=== PATIENT | female | born 2000 | race Caucasian/White ===

== ENCOUNTER 2021-06-16 12:30 | Outpatient (REF) | payer OTHER, SELFPAY ==
[2021-06-16 13:10] LABS: COVID-19 Test Negative (Negative); IDNOW Serial# 08D9AD1C
== END 2021-06-16 12:31 | disposition home or self-care (01) ==
LOC: HO.LAB 12:30
PROVIDERS: Visit Provider Internal Medicine
DX: Z20.822 Contact with and (suspected) exposure to COVID-19 (principal)
CPT/HCPCS: 87635

== ENCOUNTER 2022-02-16 11:59 | Emergency (ER) | payer OTHER, SELFPAY ==
--- NOTE | ~2022-02-16 | CT_ITS ---
EXAMINATION: CT ABDOMEN AND PELVIS WITHOUT CONTRAST CLINICAL INFORMATION: Right flank pain. COMPARISON: None. TECHNIQUE: Multidetector volumetric imaging was performed from the superior aspect of the liver through the pubic symphysis. Sagittal and coronal reformatted images were obtained on the technologist's workstation. This CT examination was performed using dose optimization techniques as appropriate, variously including the following: *Automated exposure control *Adjustment of mA and/or kV according to patient size (this includes techniques or standardized protocols for targeted exams where dose is matched to indication/reason for exam; i.e. extremities or head) *Use of iterative reconstruction technique DLP: 447 mGy-cm FINDINGS: The lack of intravenous contrast limits evaluation of the solid visceral organs including the liver, spleen, pancreas, and kidneys. LUNG BASES: The visualized lung bases are unremarkable. LIVER, GALLBLADDER, AND BILIARY TREE: The liver is normal in size, shape, and attenuation. No focal hepatic lesion or biliary ductal dilatation is present. The gallbladder is unremarkable with no evidence of radiopaque gallstones, gallbladder wall thickening, or obvious pericholecystic inflammatory changes. PANCREAS: Unremarkable. SPLEEN: Unremarkable. ADRENAL GLANDS: Unremarkable. KIDNEYS AND URETERS: The kidneys are normal in size, shape, and attenuation. No hydronephrosis, hydroureter, or calculi seen. No perinephric stranding. BLADDER: Unremarkable. GASTROINTESTINAL TRACT: No evidence to suggest bowel obstruction, diverticulitis or colitis. The appendix is within normal limits (5:51). ABDOMINAL WALL: Lower abdominal wall surgical changes with multiple surgical tacks, fatty reticulation and mild fat stranding. No significant hernia. LYMPH NODES: Enlarged right lower quadrant mesenteric lymph nodes, for instance measuring 2.9 cm in short axis on image 52, series 3. VASCULAR: Limited noncontrast examination. Normal caliber of the abdominal aorta. PELVIC VISCERA: There is a large approximately 4.7 cm low density cystic appearing lesion in the right adnexa. There is trace amount of free fluid in the pelvis, likely physiologic. OSSEOUS STRUCTURES: No acute or aggressive appearing osseous abnormalities. CT/CT abdomen pelvis wo IV con IMPRESSION: There is a 4.7 cm cystic appearing lesion in the right adnexa, which is almost certainly benign and likely correlates with a dominant cyst. However, given size, a yearly follow-up ultrasound is recommended. If symptoms persist, a shorter term follow-up pelvic ultrasound could be obtained. There are lower abdominal surgical changes with mild fat stranding, correlate with physical examination for signs of infection. Nonspecific prominent right lower quadrant mesenteric lymph nodes, of uncertain significance, which could be seen in a variety of settings including reactive changes in the setting of gastroenteritis or mesenteric adenitis.
[2022-02-16 12:02] VITALS: BP 148/74; PULSE 77; RESP 16; TEMP 36.4; O2SAT 100; BMI 24.1
[2022-02-16 12:15] LABS: Appearance Urine Clear; Color Urine Yellow; Glucose Urine UA Negative (Negative); Leukocyte Esterase Urine Negative (Negative); Nitrite Urine Negative (Negative); Urine Blood Negative (Negative); Urine Ketones Negative (Negative); Urine Protein Negative (Neg-Trace)
[2022-02-16 12:17] LABS: UPreg QC Valid YES; Urine Pregnancy NEGATIVE (NEGATIVE)
--- NOTE | 2022-02-16 13:29 | ED.FEMALEGU ---
HPI - Female Genitourinary General Chief complaint: Urogenital-Female Stated complaint: Kidney infection Time Seen by Provider: 02/16/22 13:18 Source: patient Mode of arrival: ambulatory Limitations: no limitations History of Present Illness MD elicited complaint: dysuria and flank pain Pertinent past history: recurrent UTIs Onset (ago): day(s) (3) Location of symptoms: flank Severity: moderate Quality of pain: aching Consistency: constant Urinary symptoms: Dysuria, Urgency and Frequency Exacerbating factors: none Relieving factors: none Associated symptoms: denies other symptoms Related Data Allergies Allergy/AdvReac Type Severity Reaction Status Date / Time No Known Allergies Allergy Verified 02/16/22 12:01 Review of Systems Review of Systems: Constitutional : No Weight loss, No Fever, No Chills ENT/Mouth : No sore throat, No Rhinorrhea Eyes: No Swelling, No Redness Cardiovascular : No Chest Pain, No SOB, NoEdema Respiratory : No Cough, No Sputum, No Wheezing Gastrointestinal : no Nausea, no Positive Vomiting, no Diarrhea, positive abdominal Pain, No Hematochezia, No Melena Genitourinary :pos Dysuria, pos Urinary Frequency, No Hematuria, No Urgency Musculoskeletal : No joint pain, No Myalgias, No Joint Swelling Skin : No Skin Lesions, No rash Neuro : No Weakness, No Numbness, No Dizziness, No Headache Psych : No Anxiety/Panic, No Depression Heme/Lymph: No Bruising, No Lymphadenopathy Endocrine : No Polyuria, No Polydipsia All other systems reviewed and are negative. [facility] Past Medical History Attestation statement: The following information was validated with the patient. Medical History (Updated 02/16/22 @ 16:13 by Rylie Rivas DO) Recurrent UTI Surgical History (Updated 02/16/22 @ 13:33 by Rylie Rivas DO) History of abdominoplasty Social History Social History (Updated 02/16/22 @ 13:33 by Rylie Rivas DO) Patient Tobacco Use Status: Never used Tobacco Advance Directives: No Advance Directives Information Provided: No Physical Exam Vital Signs: Vital Signs: Last Vital Signs Temp 97.5 F 02/16/22 12:02 Pulse 77 02/16/22 12:02 Resp 16 02/16/22 12:02 BP 148/74 H 02/16/22 12:02 Pulse Ox 100 02/16/22 12:02 O2 Del Method 02/16/22 12:02 BMI result Body Mass Index 24.1 Appearance: Alert. Oriented X3. No acute distress. Eyes: Pupils equal, round and reactive to light. ENT: Pharynx normal. Neck: Normal inspection. Neck supple. CVS: Normal heart rate and rhythm. Pulses normal. Respiratory: No respiratory distress. Breath sounds normal. Abdomen: Soft and mild RUQ pain, mild R flank pain. Skin: Skin warm and dry. Normal skin color. Normal skin turgor. Extremities: No lower extremity edema. No calf ttp Neuro: Oriented X 3. No motor deficit. No sensory deficit. Course Course Course Narrative: not on OCPs PERC negative ovarian cyst and mesenteric adenitis stable for DC MDM - Female Genitourinary MDM Narrative Medical decision making narrative: 21 yo female over the past year several recurrent UTIs - has been on multiple different antibiotics, has not seen a urologist yet. No imaging of kidneys done yet. At this time given RUQ and R flank pain will obtain basic labs, UA, CT scan for renal colic and evaluation of liver/GB. Discussed given negative UA will need to see a urologist to evaluate for interstitial cystitis. Lab Data Result diagrams: 02/16/22 14:28 02/16/22 14:28 Labs: Lab Results 02/16/22 02/16/22 02/16/22 Range/Units 12:08 12:08 14:28 WBC 7.8 (4.8-10.8) X10*3/uL RBC 4.23 (4.20-5.50) X10*6/uL Hgb 12.9 (12.0-16.0) g/dl Hct 38.0 (37.0-47.0) % MCV 89.8 (80.0-98.0) fL MCH 30.5 (27.0-33.0) pg MCHC 33.9 (31.0-35.0) g/dl RDW 12.8 (11.0-16.0) % Plt Count 244 (160-400) X10*3/uL MPV 9.6 (9.4-12.3) fL Immature Gran % (Auto) 0.3 (0.0-0.4) % Neut % (Auto) 63.1 (45-73) % Lymph % (Auto) 24.9 (20-40) % [place] % (Auto) 8.6 (2-11) % Eos % (Auto) 2.6 (0-4) % Baso % (Auto) 0.5 (0-2) % Lymph # (Auto) 2.0 (1.2-4.9) X10*3/uL [place] # (Auto) 0.7 (0.1-1.2) X10*3/uL Eos # (Auto) 0.2 (0.0-0.4) X10*3/uL Baso # (Auto) 0.0 (0.0-0.2) X10*3/uL Abs Immat Gran (auto) 0.02 (0.00-0.03) X10*3/uL Absolute Neuts (auto) 4.9 (2.0-8.3) x10*3/uL Absolute Nucleated RBC 0.000 (0.0-0.012) X10*3/uL Nucleated RBC % (auto) 0.0 (0.0-0.2) /100WBC Sodium (135-145) mmol/L Potassium (3.3-5.1) mmol/L Chloride (96-108) mmol/L Carbon Dioxide (22-29) mmol/L Anion Gap (12-20) BUN (9-16) mg/dL Creatinine (0.5-1.4) mg/dL Estim Creat Clear Calc Estimated GFR Random Glucose (60-115) mg/dL Calcium (8.4-10.2) mg/dL Magnesium (1.6-2.6) mg/dL Total Bilirubin (0.0-1.0) mg/dL Direct Bilirubin (0.0-0.5) mg/dL AST (5-31) U/L ALT (0-31) U/L Alkaline Phosphatase (39-117) U/L Total Protein (6.5-8.0) g/dL Albumin (3.5-5.0) g/dL Lipase (8-78) U/L Urine Color Yellow Urine Appearance Clear Urine pH 6.0 (5.0-9.0) Ur Specific [place] 1.020 (1.005-1.025) Urine Protein Negative (Neg-Trace) mg/dL Urine Glucose (UA) Negative (Negative) mg/dL Urine Ketones Negative (Negative) mg/dL Urine Blood Negative (Negative) Urine Nitrite Negative (Negative) Ur Leukocyte Esterase Negative (Negative) Urine Test NEGATIVE (NEGATIVE) 02/16/22 Range/Units 14:28 WBC (4.8-10.8) X10*3/uL RBC (4.20-5.50) X10*6/uL Hgb (12.0-16.0) g/dl Hct (37.0-47.0) % MCV (80.0-98.0) fL MCH (27.0-33.0) pg MCHC (31.0-35.0) g/dl RDW (11.0-16.0) % Plt Count (160-400) X10*3/uL MPV (9.4-12.3) fL Immature Gran % (Auto) (0.0-0.4) % Neut % (Auto) (45-73) % Lymph % (Auto) (20-40) % [place] % (Auto) (2-11) % Eos % (Auto) (0-4) % Baso % (Auto) (0-2) % Lymph # (Auto) (1.2-4.9) X10*3/uL [place] # (Auto) (0.1-1.2) X10*3/uL Eos # (Auto) (0.0-0.4) X10*3/uL Baso # (Auto) (0.0-0.2) X10*3/uL Abs Immat Gran (auto) (0.00-0.03) X10*3/uL Absolute Neuts (auto) (2.0-8.3) x10*3/uL Absolute Nucleated RBC (0.0-0.012) X10*3/uL Nucleated RBC % (auto) (0.0-0.2) /100WBC Sodium 141 (135-145) mmol/L Potassium 3.6 (3.3-5.1) mmol/L Chloride 105 (96-108) mmol/L Carbon Dioxide 26 (22-29) mmol/L Anion Gap 14 (12-20) BUN 13 (9-16) mg/dL Creatinine 0.77 (0.5-1.4) mg/dL Estim Creat Clear Calc 102.2 Estimated GFR > 60 Random Glucose 75 (60-115) mg/dL Calcium 9.7 (8.4-10.2) mg/dL Magnesium 2.0 (1.6-2.6) mg/dL Total Bilirubin 0.3 (0.0-1.0) mg/dL Direct Bilirubin < 0.2 (0.0-0.5) mg/dL AST 14 (5-31) U/L ALT 9 (0-31) U/L Alkaline Phosphatase 52 (39-117) U/L Total Protein 7.4 (6.5-8.0) g/dL Albumin 4.7 (3.5-5.0) g/dL Lipase 17 (8-78) U/L Urine Color Urine Appearance Urine pH (5.0-9.0) Ur Specific [place] (1.005-1.025) Urine Protein (Neg-Trace) mg/dL Urine Glucose (UA) (Negative) mg/dL Urine Ketones (Negative) mg/dL Urine Blood (Negative) Urine Nitrite (Negative) Ur Leukocyte Esterase (Negative) Urine Test (NEGATIVE) Discharge Plan Discharge Clinical Impression: Acute mesenteric adenitis, Ovarian cyst Patient Disposition: Home, Self-Care Instructions: Adenitis (ED), Ovarian Cyst (ED) Additional Instructions: return to ED for any worsening symptoms or concerns CT scan shows persistent R ovarian cyst - repeat US in 4 weeks tylenol and motrin for pain Referrals: Physician,None [Primary Care Provider] - 1 week Stand Alone Forms: Work/School Release
[2022-02-16] MEDS: 0.9 % Sodium Chloride 1,000 ML 999 ML IV (14:25)
[2022-02-16] MEDS: Ketorolac Tromethamine 30 MG/ML VIAL IVPUSH (14:27)
[2022-02-16 14:31] LABS: MANUAL DIFF FLAG NO
[2022-02-16 14:37] LABS: Basophils Percent Auto 0.5 % (0-2); Eosinophils Absolute Auto 0.2 X10*3/uL (0.0-0.4); Eosinophils Percent Auto 2.6 % (0-4); Hemoglobin 12.9 g/dl (12.0-16.0); Imm Gran Abs Auto 0.02 X10*3/uL (0.00-0.03); Imm Gran Pct Auto 0.3 % (0.0-0.4); Lymphocytes Percent Auto 24.9 % (20-40); Mean Corpuscular HGB Conc 33.9 g/dl (31.0-35.0); Mean Corpuscular Hemoglobin 30.5 pg (27.0-33.0); Mean Corpuscular Volume 89.8 fL (80.0-98.0); Mean Platelet Volume 9.6 fL (9.4-12.3); Monocytes Absolute Auto 0.7 X10*3/uL (0.1-1.2); Monocytes Percent Auto 8.6 % (2-11); Neutrophils Absolute Auto 4.9 x10*3/uL (2.0-8.3); Neutrophils Percent Auto 63.1 % (45-73); Platelet Count 244 X10*3/uL (160-400); Red Blood Count 4.23 X10*6/uL (4.20-5.50); Red Cell Distribution Width 12.8 % (11.0-16.0); White Blood Count 7.8 X10*3/uL (4.8-10.8)
[2022-02-16 15:03] LABS: Alanine Aminotransferase 9 U/L (0-31); Albumin Level 4.7 g/dL (3.5-5.0); Alkaline Phosphatase 52 U/L (39-117); Anion Gap 14 (12-20); Aspartate Amino Transferase 14 U/L (5-31); Blood Urea Nitrogen 13 mg/dL (9-16); Calcium 9.7 mg/dL (8.4-10.2); Carbon Dioxide 26 mmol/L (22-29); Chloride 105 mmol/L (96-108); Creatinine Clr Calc Pharmacy 102.2; Estimated Glomerular Filt Rate > 60; Glucose Random 75 mg/dL (60-115); Lipase 17 U/L (8-78); Potassium 3.6 mmol/L (3.3-5.1); Sodium 141 mmol/L (135-145); Total Protein 7.4 g/dL (6.5-8.0)
[2022-02-16 15:15] LABS: Bilirubin Direct < 0.2 mg/dL (0.0-0.5); Bilirubin Total 0.3 mg/dL (0.0-1.0)
[2022-02-16 16:47] VITALS: BP 116/59; PULSE 67; RESP 18; O2SAT 99
== END 2022-02-16 16:49 | disposition home or self-care (01) ==
PROVIDERS: Emergency Provider Emergency Medicine
DX: I88.0 Nonspecific mesenteric lymphadenitis (principal); N83.209 Unspecified ovarian cyst, unspecified side; R30.0 Dysuria; Z79.899 Other long term (current) drug therapy
CPT/HCPCS: 36415; 74176; 80048; 80076; 81003; 81025; 83690; 83735; 85025; 96374; 99283; 99284; J1885

== ENCOUNTER 2022-03-04 01:51 | Emergency (ER) | payer OTHER, SELFPAY ==
--- NOTE | ~2022-03-04 | US_ITS ---
EXAMINATION: US PELVIS CLINICAL INFORMATION: Right-sided pelvic pain COMPARISON: CT dated 02/16/2022 TECHNIQUE: Ultrasound of the pelvis is performed using both transabdominal and transvaginal transducers along with Doppler. Transvaginal imaging is performed due to inadequate visualization transabdominally. FINDINGS: Uterus: The uterus is anteverted and measures 7.6 x 2.0 x 3.5 cm. The double wall endometrial thickness is 0.1 mm. The uterus is smooth in contour and has normal myometrial echogenicity. No visible fibroid. Adnexa: Both ovaries are visualized. There is normal color flow to the adnexa. There is no ovarian torsion. Trace pelvic free fluid is within physiologic normal limits.. Right ovary measures 4.2 x 1.4 x 2.5 cm. Left ovary measures 2.8 x 1.3 x 1.3 cm. US/US pelvic and transvaginal IMPRESSION: No adnexal cysts or masses. No ovarian torsion. Unremarkable exam.
[2022-03-04 02:04] VITALS: BP 143/77; PULSE 99; RESP 18; TEMP 37.1; O2SAT 99; BMI 24.1
--- NOTE | 2022-03-04 02:52 | ED_ITS ---
HPI - Abdominal Pain General Chief Complaint: Abdominal Pain Stated Complaint: n/v Time Seen by Provider: 03/04/22 02:52 Source: patient Mode of arrival: ambulatory Limitations: no limitations History of Present Illness HPI narrative: Pain history of ovarian cyst was seen here on 02/16 for lower abdominal pain CT scan showed 4.7 cm adnexal cyst. Patient had ovarian cyst about 3 months ago which was micro cyst never had this large size cyst in the past patient been doing okay for except for last 3 days noticed more pain with more nausea no urinary complaints no fever or chills Related Data Previous Rx's Medication Instructions Recorded ibuprofen 600 mg tablet 600 mg PO Q6H PRN Pain (Scale 03/04/22 Score 4-6) #30 tabs ondansetron 4 mg disintegrating 4 mg PO Q6-8H PRN nausea and 03/04/22 tablet vomiting #7 tabs Allergies Allergy/AdvReac Type Severity Reaction Status Date / Time No Known Allergies Allergy Verified 03/04/22 02:03 Review of Systems Review of Systems Yes all other systems are reviewed and are negative [facility] Past Medical History Medical History Recurrent UTI Surgical History History of abdominoplasty Social History Social History Patient Tobacco Use Status: Never used Tobacco Advance Directives: No Advance Directives Information Provided: No Physical Exam ED Vital Signs: Vital Signs - 24 hr 03/04/22 02:04 Temperature 98.7 F Pulse Rate 99 Respiratory Rate 18 Blood Pressure 143/77 H Pulse Oximetry 99 Oxygen Delivery Method Room Air BMI result Body Mass Index 24.1 Appearance: Alert. Oriented X3. No acute distress. ENT: Pharynx normal. Oral Mucosa moist Neck: Normal inspection. Neck supple. CVS: Normal heart rate and rhythm. Pulses normal. Respiratory: No respiratory distress. Equal air entry bilateral, no wheezing/rales/rhonchi Abdomen: Soft , deep tenderness right suprapubic area no guarding or rebound tenderness. Bowel sounds are present, no mass palpable, no CVA tenderness Skin: Skin warm and dry. Normal skin color. Normal skin turgor. Extremities: No lower extremity edema. No calf tenderness Neuro: Oriented X 3. No motor deficit. MDM - Abdominal Pain MDM Narrative Medical decision making narrative: Ultrasound negative for ovarian cyst with small amount of fluid likely ruptured ovarian patient advised to follow-up with field operations technician Medical Records Attestation: I reviewed the patient's medical records. Lab Data Attestation: I reviewed the patient's lab results. Labs: Lab Results 03/04/22 03/04/22 Range/Units 03:22 03:22 Urine Color Yellow Urine Appearance Clear Urine pH 6.0 (5.0-9.0) Ur Specific [place] 1.020 (1.005-1.025) Urine Protein Negative (Neg-Trace) mg/dL Urine Glucose (UA) Negative (Negative) mg/dL Urine Ketones Negative (Negative) mg/dL Urine Blood Negative (Negative) Urine Nitrite Negative (Negative) Ur Leukocyte Esterase Trace H (Negative) Urine RBC 0-2 (0-2) /HPF Urine WBC 0-5 (0-5) /HPF Ur Squamous Epith Cells 3-5 (0-2) /HPF Urine Bacteria None Seen (None Seen) Hyaline Casts 0-2 (0-2) /LPF Urine Test NEGATIVE (NEGATIVE) Discharge Plan Discharge Clinical Impression: Ovarian cyst Patient Disposition: Home, Self-Care Instructions: Ovarian Cyst (ED) Additional Instructions: Take ibuprofen for pain Ovarian cyst has ruptured follow-up with cook soup if any concerns Prescriptions: New ibuprofen 600 mg tablet 600 mg PO Q6H PRN (Reason: Pain (Scale Score 4-6)) Qty: 30 0RF ondansetron 4 mg tablet,disintegrating 4 mg PO Q6-8H PRN (Reason: nausea and vomiting) Qty: 7 0RF Interventions: ED Discharge Assessment Last Done: 03/04/22 04:38 Discharge Date/Time: 03/04/22 04:44
[2022-03-04] MEDS: Ondansetron ODT 4 MG TAB.RAPDIS TRANSLINGU (03:23)
[2022-03-04 03:34] LABS: Urine Pregnancy NEGATIVE (NEGATIVE)
[2022-03-04 03:35] LABS: UPreg QC Valid YES
[2022-03-04 03:53] LABS: Appearance Urine Clear; Color Urine Yellow; Glucose Urine UA Negative (Negative); Leukocyte Esterase Urine Trace (Negative); Nitrite Urine Negative (Negative); UMIC TRIGGER UACC YES; Urine Blood Negative (Negative); Urine Ketones Negative (Negative); Urine Protein Negative (Neg-Trace)
[2022-03-04] MEDS: Ibuprofen 600 MG TABLET PO (03:56)
[2022-03-04 03:58] LABS: Bacteria Urine None Seen (None Seen); Hyaline Casts Urine 0-2 /LPF (0-2); RBC Urine 0-2 /HPF (0-2); WBC Urine 0-5 /HPF (0-5)
== END 2022-03-04 04:44 | disposition home or self-care (01) ==
PROVIDERS: Emergency Provider Internal Medicine
DX: N83.201 Unspecified ovarian cyst, right side (principal); N83.202 Unspecified ovarian cyst, left side; R11.2 Nausea with vomiting, unspecified; R10.30 Lower abdominal pain, unspecified; Z79.899 Other long term (current) drug therapy
CPT/HCPCS: 76830; 76856; 81001; 81025; 99283; 99284

== ENCOUNTER 2023-10-15 03:07 | Emergency (ER) | payer OTHER, SELFPAY ==
--- NOTE | ~2023-10-15 | US_ITS ---
EXAMINATION: US PELVIS CLINICAL INFORMATION: Left-sided pelvic pain. LMP 10/12/2023. COMPARISON: Pelvic ultrasound 03/04/2022. TECHNIQUE: Ultrasound of the pelvis is performed using both transabdominal and transvaginal transducers along with Doppler. Transvaginal imaging is performed due to inadequate visualization transabdominally. FINDINGS: Normal-appearing anteverted anteflexed uterus measuring 7.3 x 2.3 x 2.4 cm. No uterine lesion. The endometrium measures 0.9 cm in thickness with trace amount of physiologic fluid. No discrete focal abnormality. The ovaries are normal in morphology with preserved flow on color and spectral Doppler at the moment of this examination. The right ovary measures 2.7 x 1.1 x 1.7 cm, 2.6 mL. The left ovary measures 3.6 x 1.8 x 2 cm, 6.8 mL. There is a 1.1 x 0.8 x 1.2 cm corpus luteal cyst in the left ovary, for which no imaging follow-up is recommended. No adnexal masses. No free fluid. US/US pelvic ovarian doppler IMPRESSION: No acute sonographic abnormalities to explain the patient's symptoms.
--- NOTE | ~2023-10-15 | US_ITS ---
EXAMINATION: US PELVIS CLINICAL INFORMATION: Left-sided pelvic pain. LMP 10/12/2023. COMPARISON: Pelvic ultrasound 03/04/2022. TECHNIQUE: Ultrasound of the pelvis is performed using both transabdominal and transvaginal transducers along with Doppler. Transvaginal imaging is performed due to inadequate visualization transabdominally. FINDINGS: Normal-appearing anteverted anteflexed uterus measuring 7.3 x 2.3 x 2.4 cm. No uterine lesion. The endometrium measures 0.9 cm in thickness with trace amount of physiologic fluid. No discrete focal abnormality. The ovaries are normal in morphology with preserved flow on color and spectral Doppler at the moment of this examination. The right ovary measures 2.7 x 1.1 x 1.7 cm, 2.6 mL. The left ovary measures 3.6 x 1.8 x 2 cm, 6.8 mL. There is a 1.1 x 0.8 x 1.2 cm corpus luteal cyst in the left ovary, for which no imaging follow-up is recommended. No adnexal masses. No free fluid. US/US pelvic and transvaginal IMPRESSION: No acute sonographic abnormalities to explain the patient's symptoms.
[2023-10-15 03:09] VITALS: BP 105/63; PULSE 108; RESP 16; TEMP 36.8; O2SAT 99; BMI 24.2
[2023-10-15] MEDS: Ondansetron ODT 4 MG TAB.RAPDIS TRANSLINGU (03:48)
[2023-10-15 04:07] LABS: Hematocrit 36.3 % (37.0-47.0); Hemoglobin 12.5 g/dl (12.0-16.0); Mean Corpuscular HGB Conc 34.4 g/dl (31.0-35.0); Mean Corpuscular Hemoglobin 30.3 pg (27.0-33.0); Mean Corpuscular Volume 88.1 fL (80.0-98.0); Mean Platelet Volume 9.7 fL (9.4-12.3); Platelet Count 269 X10*3/uL (160-400); Red Blood Count 4.12 X10*6/uL (4.20-5.50); Red Cell Distribution Width 12.6 % (11.0-16.0); White Blood Count 6.9 X10*3/uL (4.8-10.8)
[2023-10-15 04:08] LABS: Alanine Aminotransferase 10 U/L (0-31); Albumin Level 4.5 g/dL (3.5-5.0); Alkaline Phosphatase 52 U/L (39-117); Anion Gap 16 (12-20); Aspartate Amino Transferase 24 U/L (5-31); Bilirubin Total 0.1 mg/dL (0.0-1.0); Blood Urea Nitrogen 14 mg/dL (9-16); Calcium 9.6 mg/dL (8.4-10.2); Carbon Dioxide 25 mmol/L (22-29); Chloride 107 mmol/L (96-108); Creatinine Clr Calc Pharmacy 92.5; Estimated Glomerular Filt Rate > 60; Glucose Random 93 mg/dL (60-115); Potassium 3.5 mmol/L (3.3-5.1); Sodium 144 mmol/L (135-145); Total Protein 7.7 g/dL (6.5-8.0)
[2023-10-15 05:37] VITALS: BP 95/51; PULSE 60; RESP 16; TEMP 36.8; O2SAT 98
--- NOTE | 2023-10-15 06:33 | ED.ABDPAIN ---
HPI - Abdominal Pain General Chief Complaint: Abdominal Pain Stated Complaint: abdominal pain Time Seen by Provider: 10/15/23 06:28 Source: patient Mode of arrival: ambulatory Limitations: no limitations History of Present Illness HPI narrative: 23 yo female with PMH of ovarian cysts presents with complaints of LLQ abdominal pain. Describes the pain as cramping and intermittent. She states she has been cramping intermittently for the past couple of weeks and had U/S scheduled at [facility], but missed appointment. She describes this acute episode woke her up from a sound sleep with intense LLQ cramping, nausea, and vomiting. Last episode of vomiting hours ago, prior to presenting to ED. She states many episodes of vomiting at home, worsened by movement. Describes small amount of blood in her vomit. At this time, her pain is a 6/10. She endorses associated lightheadedness. Denies headache, chest pain, SOB, urinary symptoms, changes in bowel habits or blood in stool. She states she is currently at the end of her menstrual cycle. She describes she has been bleeding heavier and having more painful cramping than what is typical for her. MD elicited complaint: abdominal pain Pertinent past history: other (Ovarian cyst) Pain Consistency: intermittent Location: LLQ Severity: moderate Pain scale (0-10): 6 Quality: cramping Radiation: LLQ Migration to: no migration Exacerbating factors: nothing Relieving factors: nothing Context: history of similar episodes Associated symptoms: nausea, vomiting and other (Lightheaded) Related Data Previous Rx's ?Medication ?Instructions ?Recorded ibuprofen 600 mg tablet 600 mg PO Q6H PRN Pain (Scale 03/04/22 Score 4-6) #30 tabs ondansetron 4 mg disintegrating 4 mg PO Q6-8H PRN nausea and 03/04/22 tablet vomiting #7 tabs ibuprofen 600 mg tablet 600 mg PO Q8H PRN pain #10 tabs 10/15/23 ondansetron 4 mg disintegrating 4 mg PO Q8H PRN nausea and 10/15/23 tablet vomiting #7 tabs Allergies Allergy/AdvReac Type Severity Reaction Status Date / Time No Known Allergies Allergy Verified 10/15/23 03:10 Review of Systems Review of Systems Yes all other systems are reviewed and are negative PMFSH Past Medical History Medical History Recurrent UTI Surgical History History of abdominoplasty Social History Social History Alcohol intake: current Alcohol intake frequency: holidays/special occasions only Patient Tobacco Use Status: Never used Tobacco Smoked in Last 30 Days: No Use of substances other than those prescribed or required for medical reasons: No Advance Directives: No Advance Directives Information Provided: No Do you have a plan to hurt others: No Plan Physical Exam ED Vital Signs: Vital Signs - 24 hr 10/15/23 03:09 10/15/23 05:37 10/15/23 08:15 Temperature 98.3 F 98.3 F 98.2 F Pulse Rate 108 H 60 64 Respiratory Rate 16 16 16 Blood Pressure 105/63 95/51 L 106/58 L Pulse Oximetry 99 98 99 Oxygen Delivery Method Room Air Room Air Room Air 10/15/23 09:27 Temperature 98.0 F Pulse Rate 62 Respiratory Rate 18 Blood Pressure 112/60 Pulse Oximetry 97 Oxygen Delivery Method Room Air BMI result Body Mass Index 24.2 Appearance: Alert. Oriented X3. No acute distress. Head: normocephalic, atraumatic. Eyes: Pupils equal, round and reactive to light. ENT: Pharynx normal. Neck: Normal inspection. Neck supple. CVS: Normal heart rate and rhythm. Pulses normal. Respiratory: No respiratory distress. Breath sounds normal. Abdomen: Soft and nontender. +BS x4 pelvic deferred Skin: Skin warm and dry. Normal skin color. Normal skin turgor. No rashes. Extremities: No lower extremity edema. No joint swelling. Neuro/psych: Oriented X 3. No motor deficit. No sensory deficit. Normal speech and cognition. Medical Decision Making Medical Decision Making MDM Narrative: 23 yo female with PMH significant for ovarian cysts presents for evaluation of LLQ abdominal pain. Pain initially began a couple of weeks ago, but significantly increased in intensity in the middle of the night, waking her up. She endorses associated nausea, vomiting, and lightheadedness. pain similar to prior episodes of ovarian cyst pain. currently on her menses, beta HCG <2. no UTI on UA. no microscopic hematuria making kidney stone less likley. Pelvic/transvaginal U/S reveals a 1.1 x 0.8 x 1.2 cm corpus luteal cyst in the left ovary. RBC and Hct mildly low, 4.12 and 36.3 respectively. Most likely in the setting of active menstrual bleeding. Labs otherwise unremarkable. patient feels well. stable for discharge home with NSAIDS prn and outpatient Differential Diagnosis Differential Diagnoses: The differential diagnosis associated with the presentation includes Ovarian cyst, ruptured ovarian cyst, ovarian torsion, ectopic , diverticulitis, pancreatitis, nephrolithiasis Lab Data MDM Lab Attestation statement: I reviewed the patient's lab results. UA negative. Beta HCG negative. RBC and Hct mildly low, 4.12 and 36.3 respectively. Labs otherwise unremarkable. 10/15/23 03:47 10/15/23 03:47 Labs: Lab Results 10/15/23 10/15/23 Range/Units 03:47 08:45 WBC 6.9 (4.8-10.8) X10*3/uL RBC 4.12 L (4.20-5.50) X10*6/uL Hgb 12.5 (12.0-16.0) g/dl Hct 36.3 L (37.0-47.0) % MCV 88.1 (80.0-98.0) fL MCH 30.3 (27.0-33.0) pg MCHC 34.4 (31.0-35.0) g/dl RDW 12.6 (11.0-16.0) % Plt Count 269 (160-400) X10*3/uL MPV 9.7 (9.4-12.3) fL Absolute Nucleated RBC 0.000 (0.0-0.012) X10*3/uL Nucleated RBC % (auto) 0.0 (0.0-0.2) /100WBC Sodium 144 (135-145) mmol/L Potassium 3.5 (3.3-5.1) mmol/L Chloride 107 (96-108) mmol/L Carbon Dioxide 25 (22-29) mmol/L Anion Gap 16 (12-20) BUN 14 (9-16) mg/dL Creatinine 0.87 (0.5-1.4) mg/dL Estim Creat Clear Calc 92.5 Estimated GFR > 60 Random Glucose 93 (60-115) mg/dL Calcium 9.6 (8.4-10.2) mg/dL Total Bilirubin 0.1 (0.0-1.0) mg/dL AST 24 (5-31) U/L ALT 10 (0-31) U/L Alkaline Phosphatase 52 (39-117) U/L Total Protein 7.7 (6.5-8.0) g/dL Albumin 4.5 (3.5-5.0) g/dL Lipase 25 (8-78) U/L Beta HCG, Quant < 2 mIU/mL Urine Color Yellow Urine Appearance Clear Urine pH 7.0 (5.0-9.0) Ur Specific [place] 1.010 (1.005-1.025) Urine Protein Negative (Neg-Trace) mg/dL Urine Glucose (UA) Negative (Negative) mg/dL Urine Ketones Negative (Negative) mg/dL Urine Blood Negative (Negative) Urine Nitrite Negative (Negative) Ur Leukocyte Esterase Negative (Negative) Independent Interpretation I performed an independent interpretation of an: Ultrasound Interpretation: Small cyst of left ovary. No adnexal mass. No free fluid. Radiology Impression Discussion of test interpretation with radiology: I have reviewed the radiologist's reading. Radiologist Impression: EXAMINATION: US PELVIS CLINICAL INFORMATION: Left-sided pelvic pain. LMP 10/12/2023. COMPARISON: Pelvic ultrasound 03/04/2022. TECHNIQUE: Ultrasound of the pelvis is performed using both transabdominal and transvaginal transducers along with Doppler. Transvaginal imaging is performed due to inadequate visualization transabdominally. FINDINGS: Normal-appearing anteverted anteflexed uterus measuring 7.3 x 2.3 x 2.4 cm. No uterine lesion. The endometrium measures 0.9 cm in thickness with trace amount of physiologic fluid. No discrete focal abnormality. The ovaries are normal in morphology with preserved flow on color and spectral Doppler at the moment of this examination. The right ovary measures 2.7 x 1.1 x 1.7 cm, 2.6 mL. The left ovary measures 3.6 x 1.8 x 2 cm, 6.8 mL. There is a 1.1 x 0.8 x 1.2 cm corpus luteal cyst in the left ovary, for which no imaging follow-up is recommended. No adnexal masses. No free fluid. US/US pelvic and transvaginal IMPRESSION: No acute sonographic abnormalities to explain the patient's symptoms. EXAMINATION: US PELVIS CLINICAL INFORMATION: Left-sided pelvic pain. LMP 10/12/2023. COMPARISON: Pelvic ultrasound 03/04/2022. TECHNIQUE: Ultrasound of the pelvis is performed using both transabdominal and transvaginal transducers along with Doppler. Transvaginal imaging is performed due to inadequate visualization transabdominally. FINDINGS: Normal-appearing anteverted anteflexed uterus measuring 7.3 x 2.3 x 2.4 cm. No uterine lesion. The endometrium measures 0.9 cm in thickness with trace amount of physiologic fluid. No discrete focal abnormality. The ovaries are normal in morphology with preserved flow on color and spectral Doppler at the moment of this examination. The right ovary measures 2.7 x 1.1 x 1.7 cm, 2.6 mL. The left ovary measures 3.6 x 1.8 x 2 cm, 6.8 mL. There is a 1.1 x 0.8 x 1.2 cm corpus luteal cyst in the left ovary, for which no imaging follow-up is recommended. No adnexal masses. No free fluid. US/US pelvic ovarian doppler IMPRESSION: No acute sonographic abnormalities to explain the patient's symptoms. External Record Review External record reviewed: Inpatient record Prescription Management I considered prescription management with: Pain Medication Medications Administered Discontinued Medications Generic Name Dose Route Start Last Admin Trade Name Freq PRN Reason Stop Dose Admin Ondansetron HCl 4 mg 10/15/23 03:45 10/15/23 03:48 Ondansetron Odt 4 Mg Tab.Rapdis TRANSLINGU 10/15/23 03:46 4 mg ONCE ONE Administration Critical Care Time Critical Care Time Critical Care Time: No Discharge Plan Discharge Clinical Impression: Ovarian cyst Qualifiers: Laterality: left Qualified Code(s): N83.202 - Unspecified ovarian cyst, left side Patient Disposition: Home, Self-Care Instructions: Ovarian Cyst (ED) Additional Instructions: Your urine test was negative for infection. Your ultrasound results are as below. No further imaging is needed. You have a small cyst on the left side that may be causing your pain. Take the prescribed anti-inflammatory medication as needed along with the antinausea medication as needed. Follow-up with your primary care doctor in your OBGYN. If you develop new or worsening symptoms call 911 or come back to the ER for further evaluation. EXAMINATION: US PELVIS CLINICAL INFORMATION: Left-sided pelvic pain. LMP 10/12/2023. COMPARISON: Pelvic ultrasound 03/04/2022. FINDINGS: Normal-appearing anteverted anteflexed uterus measuring 7.3 x 2.3 x 2.4 cm. No uterine lesion. The endometrium measures 0.9 cm in thickness with trace amount of physiologic fluid. No discrete focal abnormality. The ovaries are normal in morphology with preserved flow on color and spectral Doppler at the moment of this examination. The right ovary measures 2.7 x 1.1 x 1.7 cm, 2.6 mL. The left ovary measures 3.6 x 1.8 x 2 cm, 6.8 mL. There is a 1.1 x 0.8 x 1.2 cm corpus luteal cyst in the left ovary, for which no imaging follow-up is recommended. No adnexal masses. No free fluid. US/US pelvic and transvaginal IMPRESSION: No acute sonographic abnormalities to explain the patient's symptoms. Prescriptions: New ibuprofen 600 mg tablet 600 mg PO Q8H PRN (Reason: pain) Qty: 10 0RF ondansetron 4 mg tablet,disintegrating 4 mg PO Q8H PRN (Reason: nausea and vomiting) Qty: 7 0RF No Action ibuprofen 600 mg tablet 600 mg PO Q6H PRN (Reason: Pain (Scale Score 4-6)) Qty: 30 0RF ondansetron 4 mg tablet,disintegrating 4 mg PO Q6-8H PRN (Reason: nausea and vomiting) Qty: 7 0RF Interventions: ED Discharge Assessment Last Done: 10/15/23 09:27 Discharge Date/Time: 10/15/23 09:28 Print Language: [place]
[2023-10-15 07:02] LABS: Lipase 25 U/L (8-78)
[2023-10-15 07:13] LABS: HCG Quantitative < 2 mIU/mL
[2023-10-15 08:15] VITALS: BP 106/58; PULSE 64; RESP 16; TEMP 36.8; O2SAT 99
[2023-10-15 08:52] LABS: Appearance Urine Clear; Color Urine Yellow; Glucose Urine UA Negative (Negative); Leukocyte Esterase Urine Negative (Negative); Nitrite Urine Negative (Negative); Urine Blood Negative (Negative); Urine Ketones Negative (Negative); Urine Protein Negative (Neg-Trace)
[2023-10-15 09:27] VITALS: BP 112/60; PULSE 62; RESP 18; TEMP 36.7; O2SAT 97
== END 2023-10-15 09:28 | disposition home or self-care (01) ==
PROVIDERS: Physician Assistant; Emergency Provider Student in an Organized Health Care Education/Training Program
DX: N83.202 Unspecified ovarian cyst, left side (principal); R10.2 Pelvic and perineal pain; R11.2 Nausea with vomiting, unspecified; Z79.899 Other long term (current) drug therapy
CPT/HCPCS: 36415; 76830; 76856; 80053; 81003; 83690; 84702; 85027; 93975; 99284

== ENCOUNTER 2024-07-14 08:19 | Emergency (ER) | payer BC, SELFPAY ==
[2024-07-14 08:20] VITALS: BP 121/85; PULSE 82; RESP 18; TEMP 37.1; O2SAT 99; BMI 26.2
--- OUTSIDE RECORDS SUMMARY | 2024-07-14 08:39 | XMS_ITS | Continuity of Care Document ---
Author Name [facility] Organization [facility] Care Team Providers Care Territory Account Representative Name Role Phone [facility] Unavailable Unavailable Problems Combined list of problems from Department of Defense and Veterans Affairs facilities. It does not include entries that were removed or entered in error. Problem Status Onset Date Problem Type Date of Resolution Comme nts Source Strain of muscle, fascia and tendon of right hip Active Condition [facility] Allergies, Adverse Reactions, Alerts Combined list of allergies from Department of Defense and Veterans Affairs facilities. It does not include entries that were removed or entered in error. Substance Category Reaction Severity Reaction type Status Date Reported Comments Source No Known Allergies Drug allergy (disorder) active 09/25/2019 Medical Group Immunizations Combined list of available immunizations from the Department of Defense and Veterans Affairs facilities. Immunization Series Date Given Administered By Site Reaction Lot Number CVX Code Drug Caregivers Homecare Status Comments Source influenza, injectable, quadrivalent- pf 2021 [id number] 150 Unknown complet ed influenza , injectabl e, quadrival ent-pf 04/01/22 Given Ambulat ory Pharmac y HepB, Adult 2021 [id number] GlaxoSmithKli ne complet ed HepB, Adult 08/06/21 Given Ambulat ory Pharmac y influenza, injectable, quadrivalent 2021 [id number] GlaxoSmithKli ne complet ed influenza , injectabl e, quadrival ent 08/06/21 Given Ambulat ory Pharmac y COVID Vaccine Pfizer 2020 [id number] PFIZER complet ed COVID Vaccine Pfizer 07/31/20 Given Ambulat ory Pharmac y COVID Vaccine Pfizer 2020 [id number] PFIZER complet ed COVID Vaccine Pfizer 07/13/20 Given Ambulat ory Pharmac y influenza, injectable, quadrivalent- pf 2018 [id number] 150 Seqirus complet ed influenza , injectabl e, quadrival ent-pf 04/21/19 Given Ambulat ory Pharmac y influenza, injectable, quadrivalent- pf 2018 [id number] 150 Seqirus complet ed influenza , injectabl e, quadrival ent-pf 04/21/19 Given Ambulat ory Pharmac y Influenza, injectable, quadrivalent, preservative free 1 2018 [id number] 150 Seqirus (SEQ) complet ed Influenza , injectabl e, quadrival ent, preservat sourav free DoD Encounters Combined list of: 1) Encounters from Department of Veterans Affairs facilities going backup to the last 18 months, not all VA inpatient encounters are included; 2) Encounters from the Department of Defense facilities going backup to 280 months. Location Location Details Encounter Type Encounter Number Reason For Visit Attending Provider ADM Date DC Date Status Disposition Source [facility](IEP Optometry ) OUTPATIENT [id number] DESTINY CABALLERO 08/26 Released w/o Limitations [facility](I EP Optomet ry) [facility](P Primary Care) OUTPATIENT [id number] Notes Entered by: THERESA LAN 30 Aug 2019 0956 ------- ------- ------- ------- -- IET IMM THERESA LAN 08/29 Released w/o Limitations [facility](I EP Primary Care) [facility] Ambulator y) OUTPATIENT [id number] Notes Entered by: VIPUL PAIGE 25 Sep 2019 0539 ------- ------- ------- ------- -- ALLERGI ES/RASH ON FACE IRVIN RAMOS 09/24 Released w/o Limitations [facility](T MC Ambulat ory) [facility](C Ambulator y) OUTPATIENT [id number] Notes Entered by: VIPUL PAIGE 30 Sep 2019 0540 ------- ------- ------- ------- -- ALLERGY , BLISTER S DHAVAL LIVINGSTON E 09/29 Released with Work/Duty Limitations [facility](T MC Ambulat ory) [facility](P Primary Care) OUTPATIENT [id number] Notes Entered by: THERESA LAN 03 Oct 2019 0752 ------- ------- ------- ------- -- DF IMM THERESA LAN 10/02 Released w/o Limitations [facility](I EP Primary Care) [facility] Ambulator y) OUTPATIENT [id number] UTI C.CO 134 AJAYREJICURT Constantino 10/21 Released w/o Limitations [facility] Ambulat ory) [facility] [place] OUTPATIENT [id number] Notes Entered by: BARB SAWANT 12 Nov 2019 0630 ------- ------- ------- ------- -- hip DUSTY SHEFFIELD 11/11 Released w/o Limitations [facility] Physica l Therapy [place]) [facility] [place] [facility] [place] OUTPATIENT [id number] GAVINO Bear 11/13 Immediate Referral [facility] Phys[facility] Therapy [place]) [facility] [place] OUTPATIENT [id number] Right Hip Pain GRADY HARPER 12/02 Released with Work/Duty Limitations [facility] Primary [facility] [place]) [facility] [place] OUTPATIENT [id number] Right abdomen pain MIGUEL BOYER 01/01 Released with Work/Duty Limitations [facility] Primary [facility] [place]) [facility] [place] TELE CONSULT [id number] Notes Entered by: RAKAN ANN 06 Jan 2020 1211 ------- ------- ------- ------- -- additio nal labs per NAVID GARCIA 01/05 [facility] Primary Care [place]) [facility] h(Gastro NMCP) OUTPATIENT [id number] Hepatom egaly, not elsewhe re classif ied/vir tual appt(bk by Hemal donahue) KATHERINE TALLEY 01/13 Released w/o Limitations [facility](Gas tro NMCP) Ambulator y Pharmacy [facility] [id number] 460 08/24 Ambulat ory Pharmac y No Facility Access History [id number] 08/24 No Facilit y Access Procedures Combined list of: 1) Procedures from Department of Veterans Affairs facilities going [facility], not all VA non-surgical procedures are included; 2) All procedures from the Department of Defense facilities. Procedure Procedure Type Code Date Perfomer Comments Sourc e No data available for this section Ambulato ry Pharmacy VARICELLA VIRUS VACCINE (NEMO), LIVE, FOR SUBCUTANEOUS USE [facility] PUNCTURE ASPIRATION OF ABSCESS, HEMATOMA, BULLA, OR CYST [facility] INFLUENZA VIRUS VACCINE, QUADRIVALENT (IIV4), SPLIT VIRUS, PRESERVATIVE FREE, 0.5 ML DOSAGE, FOR INTRAMUSCULAR USE [facility] DETERMINATION OF REFRACTIVE STATE [facility] EAR MOLD/INSERT, NOT DISPOSABLE, ANY TYPE [facility] WAIVER SERVICES; NOT OTHERWISE SPECIFIED (NOS) [facility] ATHLETIC TRAINING EVALUATION, LOW COMPLEXITY,REQ:HIST & PHYS ACT PROFILE W NO COMORB;EXAM AFF BODY AREA,ADDRESS 1-2 ELEMENTS;CLIN DEC DENZEL,LOW,TYP,15 MIN ARE SPENT [id number] W THE PATIENT &/FAMILY [facility] THERAPEUTIC PROCEDURE, 1 OR MORE AREAS, EACH 15 MINUTES; THERAPEUTIC EXERCISES TO DEVELOP STRENGTH AND ENDURANCE, RANGE OF MOTION AND FLEXIBILITY [facility] Ophthalmological New Patient Start Intermediate Level Care Ophthalmological New Patient Start Intermediate Level Care [id number] HEATHER DAVIS I [facility] Spectacles Services Fitting Monofocal Except For Aphakia Spectacles Services Fitting Monofocal Except For Aphakia [id number] HEATHER DAVIS I [facility] Determination Of Refractive State Determination Of Refractive State 56727 HEATHER DAVIS I [facility] Immunization Administration By Injection, One Vaccine Immunization Administration By Injection, One Vaccine 23506 THERESA LAN [facility] Immunization Administration By Injection, Each Additional Vaccine Immunization Administration By Injection, Each Additional Vaccine 67348 EDYTA THERESA [facility] Vaccines Viral Polio, Inactivated Vaccines Viral Polio, Inactivated 32434 EDYTA THERESA [facility] Meningococcal Conjugate Vaccine Quadrivalent Serogroups A, C, Y, W-135 Meningococcal Conjugate Vaccine Quadrivalent Serogroups A, C, Y, W-135 17062 EDYTA THERESA [facility] Tdap Vaccine Tdap Vaccine 54404 [place] [facility] Viral Varicella (Active) Vaccines Viral Varicella (Active) 36322 [place] THERESA [facility] Immunization Admin Intranasal / Oral Each Additional Vaccine Immunization Admin Intranasal / Oral Each Additional Vaccine 51813 [place] THERESA [facility] Vaccines Adenovirus Type 4 Live, For Oral Use Vaccines Adenovirus Type 4 Live, For Oral Use 61362 EDYTA THERESA [facility] Vaccines Adenovirus Type 7 Live, For Oral Use Vaccines Adenovirus Type 7 Live, For Oral Use 70616 EDYTA THERESA [facility] Hepatitis B Vaccine (Active) Adult Dosage Hepatitis B Vaccine (Active) Adult Dosage 29155 [facility] Influenza Split Virus Vaccine IM Preserv Free 0.5mL Dosage Quadrivalent Influenza Split Virus Vaccine IM Preserv Free 0.5mL Dosage Quadrivalent 55908 EDYTA THERESA [facility] Puncture Aspiration Of Bulla Puncture Aspiration Of Bulla 25347 YARA, DHAVAL E TO TREATMENT ROOM FOR PUNCTURE OF BULLAE TO THE RIGHT HEEL, COLLECTION OF SPECIMEN, DRESSING, SELF CARE INSTRUCTION, AND SUPPLIES [facility] Hepatitis B Vaccine (Active) Adult Dosage 3 Dose Schedule Hepatitis B Vaccine (Active) Adult Dosage 3 Dose Schedule 17115 EDYTA THERESA [facility] A isted Exercises For ROM Assisted [place]ercises [place] ROM 25261 DUSTY SHEFFIELD [facility] Physical Therapy Service Evaluation Moderate Complexity Physical Therapy Service Evaluation Moderate Complexity 90061 DUSTY SHEFFIELD [facility] Athletic Training Evaluation Low Complexity Athletic Training Evaluation Low Complexity 72921 GAVINO GUNTER [facility] Waiver services; not otherwise specified (NOS) KATHERINE TALLEY [facility] Social History Combined list of available smoking, tobacco, and other social history from Department of Defense and Veterans Affairs facilities. Social History Type Response Date Comment [facility] e This section is an empty social history section. [facility] Assessment and Plan Combined list of future care activities from Department of Defense and Veterans Affairs facilities (e.g., assessment and plan notes, appointments, orders, and referrals). Additional future care activities may be listed in the Plan of Care section. Result Assessment and Plan Date Source Assessment and Plan No data available for this section 07/14/2024 Ambulatory Pharmacy Functional Status Combined list of recent functional and cognitive assessments recorded at Department of Defense and Veterans Affairs (VA).VA Functional [place] Measurement (FIM) Scale: 1 = Total Assistance (Subject = 0% +), 2 = Maximal Assistance (Subject = 25% +), 3 = Moderate Assistance (Subject = 50% +), 4 = Minimal Assistance (Subject = 75% +), 5 = Supervision, 6 = Modified [place] (Device), 7 = Complete [place] (Timely, Safely). Assessment Date/Time Source Assessment Type Assessment Skill Assessment Score Assessment Details No data available for this section
[2024-07-14 09:07] LABS: IDNOW Serial# 58CA691E; Strep A Nucleic Acid Negative (Negative)
[2024-07-14 09:17] LABS: Influenza A PCR NEGATIVE (Negative); Influenza B PCR NEGATIVE (Negative); Resp Syncy Virus RNA Qual PCR NEGATIVE (Negative); SARS COV2 PCR INHOUSE NEGATIVE (Negative)
--- NOTE | 2024-07-14 09:29 | ED_ITS ---
HPI - General Adult General Chief complaint: Upper Respiratory Symptoms Stated complaint: strept Time Seen by Provider: 07/14/24 09:28 Source: patient Mode of arrival: ambulatory Limitations: no limitations History of Present Illness ED Provider: Sakshi Bacon PA-C HPI narrative: Patient is a 24 year old assigned female at with no reported medical history presenting to the emergency department today with a sore throat. Patient states that starting yesterday she began having a sore throat and noticed exudates on her left tonsil. Patient denies any dizziness, lightheadedness, abd ominal pain, nausea, vomiting, fever, chills, blurry vision, double vision, loss of vision, chest pain, difficulty breathing, shortness of breath, back pain, night sweats, pain with urination, increased urinary frequency, increased urinary urgency, blood in her urine or stool, syncope or a near syncopal episode, recent trauma or falls, bowel incontinence, bladder incontinence, or any other complaints at this time. Relieving factors: none Exacerbating factors: none Associated symptoms: denies other symptoms Treatments prior to arrival: none Related Data Previous Rx's ?Medication ?Instructions ?Recorded ibuprofen 600 mg tablet 600 mg PO Q6H PRN Pain (Scale 03/04/22 Score 4-6) #30 tabs ondansetron 4 mg disintegrating 4 mg PO Q6-8H PRN nausea and 03/04/22 tablet vomiting #7 tabs ibuprofen 600 mg tablet 600 mg PO Q8H PRN pain #10 tabs 10/15/23 ondansetron 4 mg disintegrating 4 mg PO Q8H PRN nausea and 10/15/23 tablet vomiting #7 tabs penicillin V potassium 500 mg 500 mg PO BID 10 days #20 tabs 07/14/24 tablet Allergies Allergy/AdvReac Type Severity Reaction Status Date / Time No Known Allergies Allergy Verified 07/14/24 08:23 Review of Systems Constitutional: Constitutional: Reports no additional constitutional complaints, Denies chills, Denies fever(s) and Denies night sweats Eyes: Eyes: Reports no additional eye complaints, Denies blurry vision, Denies change in vision, Denies diplopia, Denies eye discharge, Denies loss of vision and Denies eye pain ENT: Denies dizziness and Reports sore throat Cardiovascular: Cardiovascular: Reports no additional cardiovascular complaints, Denies chest pain, Denies lightheadedness, Denies Loss of Consciousness and Denies dyspnea Respiratory: Respiratory: Reports no additional respiratory complaints and Denies dyspnea Gastrointestinal: Gastrointestinal: Reports no additional gastrointestinal complaints, Denies abdominal pain, Denies melena, Denies hematochezia, Denies change in bowel habits and Denies change in stool character Genitourinary: Genitourinary: Denies hematuria, Denies urinary frequency, Denies dysuria, Denies urinary incontinence, Denies urinary hesitancy and Denies urinary urgency Musculoskeletal: Musculoskeletal: Reports no additional musculoskeletal complaints, Denies numbness and Denies tingling Neurologic: Denies dizziness, Denies loss of vision, Denies numbness and Denies tingling Psychiatric: Psychiatric: Reports no additional psychiatric complaints Endocrine: Endocrine: Reports no additional endocrine complaints Hematologic/Lymphatic: Hematologic/Lymphatic: Reports no additional hematologic/lymphatic complaints Allergic/Immunologic: Allergic/Immunologic: Reports no additional allergic/imm unologic complaints PMFSH Past Medical History Attestation statement: The following information was validated with the patient. Source: old records reviewed and nursing notes reviewed Medical History Recurrent UTI Surgical History History of abdominoplasty Social History Social History Alcohol intake: current Alcohol intake frequency: holidays/special occasions only Patient Tobacco Use Status: Never used Tobacco Advance Directives: No Advance Directives Information Provided: No Physical Exam ED Vital Signs: Vital Signs - 24 hr 07/14/24 08:20 07/14/24 09:43 Temperature 98.7 F 98.7 F Pulse Rate 82 82 Respiratory Rate 18 18 Blood Pressure 121/85 121/85 Pulse Oximetry 99 99 Oxygen Delivery Method Room Air Room Air BMI result Body Mass Index 26.2 Const General: cooperative, no acute distress, alert and awake Nutritional Appearance: well nourished Orientation/consciousness: patient oriented x3 Limitations: no limitations HENMT Head: Yes normal to inspection and Yes atraumatic Ears: hearing grossly normal bilaterally and external ears normal General nose exam: Normal external nose present, no nasal discharge noted and no epistaxis Face and sinus: Yes normal facial exam, No abrasion and No laceration Mouth: Normal oral and palatal mucosa present, no drooling and no muffled voice Throat: Yes abnormal tonsil (left tonsil has some exudates present) Eyes General: appearance normal, both eyes and all related structures Periorbital: periorbital findings normal Eyelids: Yes eyelids normal Conjunctivae: conjunctivae normal Pupils: Equal, round and reactive pupils present EOM: EOMs intact bilaterally Neck Neck: Yes normal visual inspection, Yes full ROM and Yes no lymphadenopathy Chest Chest palpation & inspection: normal inspection of the chest Resp Effort & Inspection: normal respiratory effort and able to speak in complete sentences GI Inspection: Yes normal to inspection Neuro General: patient oriented x3, moves all extremities and CN's II-XI intact bilaterally Cranial nerves: Yes Equal, round and reactive pupils present Cognition (Neuro): normal cognition Extrem General: Yes normal to inspection, Yes full ROM and Yes capillary refill normal Psych Appearance: grossly normal Mental Status: mental status grossly normal Affect: normal affect Attitude: cooperative Thought process: Normal thought process present Thought content: Normal thought content present Insight: Good insight present (Psych) Medical Decision Making Medical Decision Making MDM Narrative: Patient is a 24 year old assigned female at with no reported medical history presenting to the emergency department today with a sore throat. Patient's physical exam was as noted in the physical exam portion of this note. Patient's COVID-19, influenza, RSV, and strep tests were negative. Given the patient's clinical presentation - will treat the pharyngitis as bacterial. I explained my physical exam findings as well as all test results to the patient. I answered all questions asked by the patient. I stressed the importance of the patient taking her medication as directed (either prescribed or as the over the counter packaging recommends). I stressed the importance of the patient following up with her primary care provider. I stressed the importance of the patient returning to the emergency department immediately if her symptoms were to worsen or if she were to develop any dizziness, shortness of breath, difficulty breathing, chest pain, blurry vision, loss of vision, nausea, vomiting, abdominal pain, fever, chills, back pain, or any other complaints. Patient verbalized agreement and understanding with this treatment plan and discharge. Differential Diagnosis Differential Diagnoses: The differential diagnosis associated with the presentation includes Sore throat COVID-19 Influenza RSV Strep pharyngitis Pharyngitis Admission/Observation Consideration of admission/observation: Escalation of care including admission/observation considered Patient would have been admitted to the hospital had her work up had any findings where hospital admission was appropriate and her clinical presentation warranted hospital admission. Lab Data [facility] Lab Attestation statement: I reviewed the patient's lab results. My interpretation of these results are in the [facility] Rationale portion of this note. Labs: Lab Results 07/14/24 Range/Units 08:34 Influenza Type A (PCR) NEGATIVE (Negative) Influenza Type B (PCR) NEGATIVE (Negative) RSV RNA Qual (PCR) NEGATIVE (Negative) SARS-CoV-2 RNA (RT-PCR) NEGATIVE (Negative) S. pyogenes GrpA BIANCA Negative (Negative) Prescription Management I considered prescription management with: Antibiotic (patient prescribed an antibiotic for possible pharyngitis) Discharge Plan Discharge Clinical Impression: Pharyngitis Patient Disposition: Home, Self-Care Instructions: Pharyngitis (ED) Additional Instructions: Your step, COVID-19, influenza, and RSV testing was all negative however, given your physical exam findings and clinical presentation - will treat your pharyngitis as bacterial. Throw away your toothbrush after 24 hours on antibiotics. If you use oral control - it may be LESS effective while on antibiotics so please consider using additional contraception. Follow up with your primary care provider. Return to the emergency department immediately if your symptoms worsen or if you develop any dizziness, shortness of breath, difficulty breathing, chest pain, blurry vision, loss of vision, nausea, vomiting, abdominal pain, fever, chills, back pain, or any other complaints. Prescriptions: New penicillin V potassium 500 mg tablet 500 mg PO BID 10 Days Qty: 20 0RF No Action ibuprofen 600 mg tablet 600 mg PO Q6H PRN (Reason: Pain (Scale Score 4-6)) Qty: 30 0RF ondansetron 4 mg tablet,disintegrating 4 mg PO Q6-8H PRN (Reason: nausea and vomiting) Qty: 7 0RF ibuprofen 600 mg tablet 600 mg PO Q8H PRN (Reason: pain) Qty: 10 0RF ondansetron 4 mg tablet,disintegrating 4 mg PO Q8H PRN (Reason: nausea and vomiting) Qty: 7 0RF Referrals: [facility] Family Medicine [Provider Group] (Call to establish and follow up with a primary care provider. If you already have a primary care provider, please follow up with them.) [facility] Primary [facility] [Provider Group] (Call to establish and follow up with a primary care provider. If you already have a primary care provider, please follow up with them.) [facility] Primary CareSapna [Provider Group] (Call to establish and follow up with a primary care provider. If you already have a primary care provider, please follow up with them.) [facility] Primary CareKalpesh [Provider Group] (Call to establish and follow up with a primary care provider. If you already have a primary care provider, please follow up with them.) Interventions: ED Discharge Assessment Last Done: 07/14/24 09:43 Discharge Date/Time: 07/14/24 09:45 Print Language: [place]
[2024-07-14 09:43] VITALS: BP 121/85; PULSE 82; RESP 18; TEMP 37.1; O2SAT 99
== END 2024-07-14 09:45 | disposition home or self-care (01) ==
PROVIDERS: Physician Assistant Medical; Emergency Provider Emergency Medicine
DX: J02.9 Acute pharyngitis, unspecified (principal); Z03.818 Encounter for observation for suspected exposure to other biological agents ruled out; Z87.440 Personal history of urinary (tract) infections
CPT/HCPCS: 0241U; 87651; 99282; 99283